=== PATIENT | male | born 1965 | race Caucasian/White ===

== ENCOUNTER 2016-08-14 23:31 | Emergency (ER) | payer MEDICAID ==
[~2016-08-14] VITALS: Ht 180.3 cm; Wt 93.2 kg
[2016-08-15 02:55] LABS: HEMOGLOBIN 12.7 g/dL (13.7-18.0)
[2016-08-15 03:06] LABS: BLOOD UREA NITROGEN 24 mg/dL (7-18)
[2016-08-15 04:30] VITALS: BP 114/72
[2016-08-15] MEDS ORDERED: KETOROLAC 30 MG/1 ML IM ONE (06:00)
[2016-08-15] MEDS ORDERED: HYDROmorphone 1 MG/ML, 1ML IM ONE (06:00)
[2016-08-15] MEDS ORDERED: KETOROLAC 30 MG/1 ML ONE (06:04)
[2016-08-15] MEDS ORDERED: HYDROmorphone 1 MG/ML, 1ML ONE (06:04)
== END 2016-08-15 06:29 | disposition home or self-care (01) ==
LOC: ED 23:59
DX: R31.9 Hematuria, unspecified (principal); N23 Unspecified renal colic; F41.1 Generalized anxiety disorder
CPT/HCPCS: 36415; 76770; 80048; 81001; 82040; 85025; 87077; 87086; 87186; 99285

== ENCOUNTER → 2016-08-22 | Outpatient (CLI) | payer MEDICAID ==
[~2016-08-22] MED LIST: BACTRIM PO
[2016-08-22 10:59] LABS: BLOOD UREA NITROGEN 17 mg/dL (7-18)
[2016-08-22 11:02] LABS: ASPARTATE AMINO TRANSFERASE 28 U/L (15-37)
== END | disposition home or self-care (01) ==
LOC: STAR 09:11
PROVIDERS: ATTEND Urology
DX: Z01.818 Encounter for other preprocedural examination (principal); N20.0 Calculus of kidney
CPT/HCPCS: 36415; 80053; 81001; 87077; 87086; 87186; 93005

== ENCOUNTER → 2016-08-25 | Outpatient (CLI) | payer MEDICAID | END | disposition home or self-care (01) | LOC: RAD 08:57 | PROVIDERS: ATTEND Urology | DX: N20.0 Calculus of kidney (principal) | CPT/HCPCS: 74000 ==

== ENCOUNTER → 2016-08-26 | Outpatient (CLI) | payer MEDICAID ==
[2016-08-22 09:45] VITALS: BP 133/84
[~2016-08-26] VITALS: Ht 180.3 cm; Wt 90.0 kg
[~2016-08-26] MED LIST changes: +LACTATED RINGERS 1,000 ML IV SCH
[2016-08-26 09:48] VITALS: BP 133/84
[2016-08-26 10:03] LABS: DAU SCREEN DISCLAIMER
== END | disposition home or self-care (01) ==
LOC: OUT 08:57 → EDSTATUS 10:30
PROVIDERS: ATTEND Urology
DX: Z01.818 Encounter for other preprocedural examination (principal); N20.0 Calculus of kidney
CPT/HCPCS: 80307; J7120

== ENCOUNTER → 2016-09-22 | Outpatient (CLI) | payer MEDICAID ==
[~2016-09-22] MED LIST changes: -LACTATED RINGERS 1,000 ML IV SCH
== END | disposition home or self-care (01) ==
LOC: RAD 09:03
PROVIDERS: ATTEND Urology
DX: N20.0 Calculus of kidney (principal); K80.20 Calculus of gallbladder without cholecystitis without obstruction
CPT/HCPCS: 74000